=== PATIENT | female | born 1980 ===

== ENCOUNTER → 2021-08-17 08:00 | Outpatient (CLI) | payer OTHER ==
[~2021-08-17 08:00] MED LIST: CIPRO500 MG PO; COZAAR50 MG PO; FENOFIBRATE PO; FLAGYL500MG PO; LIPOFEN150 MG; RECTICARE30 GM TOP; ULTRACET PO
== END | disposition home or self-care (01) ==
LOC: LAB 08:00 → ADM 10:00 → CIR.AMB 08-23 08:30 → EDSTATUS 08-23 10:00 → CIR.AMB 08-23 10:00
PROVIDERS: ATTEND Colon & Rectal Surgery
DX: I10 Essential (primary) hypertension (principal); D12.9 Benign neoplasm of anus and anal canal; D12.8 Benign neoplasm of rectum; K64.2 Third degree hemorrhoids

== ENCOUNTER 2021-08-19 09:32 | Inpatient (IN) | payer OTHER ==
[~2021-08-19] VITALS: Ht 157.5 cm; Wt 95.3 kg
[~2021-08-19 09:32] MED LIST changes: -CIPRO500 MG PO; -FLAGYL500MG PO; -LIPOFEN150 MG; -RECTICARE30 GM TOP; -ULTRACET PO
[2021-08-19] MEDS ORDERED: LIPOFEN150 MG (09:56)
[2021-08-21] MEDS ORDERED: FLAGYL500MG PO (13:11)
[2021-08-21] MEDS ORDERED: CIPRO500 MG PO (13:11)
[2021-08-21] MEDS ORDERED: ULTRACET PO (13:12)
[2021-08-21] MEDS ORDERED: RECTICARE30 GM TOP (13:12)
== END 2021-08-21 13:51 | disposition home or self-care (01) | DRG 395 ==
LOC: ER 09:32 → SEC-K 19:36 → SURH 19:36
PROVIDERS: ADMIT Colon & Rectal Surgery; ATTEND Colon & Rectal Surgery
PROC: 3E0F7SF Introduction of Other Gas into Respiratory Tract, Via Natural or Artificial Opening (ICD-10-PCS; 2021-08-19)
PROC: BW2 Imaging, Anatomical Regions, Computerized Tomography (CT Scan) (ICD-10-PCS; 2021-08-20)
PROC: 0D9Q7ZX Drainage of Anus, Via Natural or Artificial Opening, Diagnostic (ICD-10-PCS; principal; 2021-08-20 09:30)
DX: K61.0 Anal abscess (principal); K62.1 Rectal polyp; D72.828 Other elevated white blood cell count; Z20.822 Contact with and (suspected) exposure to COVID-19

== ENCOUNTER 2022-07-11 09:01 | Day surgery (SDC) | payer OTHER ==
[~2022-07-11] VITALS: Ht 157.5 cm; Wt 93.0 kg
[~2022-07-11 09:01] MED LIST changes: +CIPRO500 MG PO; +FLAGYL500MG PO; +LIPOFEN150 MG; +NEXIUM 24HR20 MG PO; +PROAIR RESPICL90 MCG IH; +PULMICORT FLE180 MCG IH; +RECTICARE30 GM TOP; +ULTRACET PO; +ZOLOFT50 MG PO
== END 2022-07-11 18:00 | disposition home or self-care (01) ==
LOC: CIR.AMB 09:01
PROVIDERS: ATTEND Colon & Rectal Surgery
DX: K64.1 Second degree hemorrhoids (principal); D12.9 Benign neoplasm of anus and anal canal; Z20.822 Contact with and (suspected) exposure to COVID-19; I10 Essential (primary) hypertension; J45.909 Unspecified asthma, uncomplicated; Z86.16 Personal history of COVID-19; E66.9 Obesity, unspecified